=== PATIENT | female | born 1980 | race Hispanic/Latino ===

== ENCOUNTER 2024-04-14 21:57 | Emergency (ER) | payer MEDICAID ==
[~2024-04-14] VITALS: Ht 167.6 cm; Wt 73.9 kg
[2024-04-14] MEDS ORDERED: IBUP-1556 PO (22:16)
[2024-04-14] MEDS ORDERED: CLIN-141 PO (22:16)
--- NOTE | 2024-04-14 22:17 | ERN ---
ED Note History of Present Illness Stated Complaint: C/O ABSCESS TO RIGHT CHEEK Chief Complaint: Abscess Time Seen by MD: 22:10 Dictation: PATIENT IS A 43-YEAR-OLD FEMALE HERE WITH COMPLAINTS OF MILD RIGHT CHEEK SWELLING TENDERNESS WITH A PIMPLE ONSET 4-5 DAYS PRIOR TO ARRIVAL. NO FEVER NO CHILLS NO NAUSEA VOMITING SHE IS NOT A DIABETIC PATIENT SHE IS HERE VISITING FROM [place] AND PLANS TO GO BACK HOME IN TWO WEEKS. Allergies: Coded Allergies: No Known Allergies (Unverified Allergy, Unknown, 04/14/24) Past Medical History Past Medical History: Anxiety, Bipolar, Depression, Diabetes-Type II, Hypertension, Hypothyroid Surgical History: Cholecystectomy History: Not Applicable RN Note Reviewed/Agreed w/PFSH: Yes Review of System Dictation CONSTITUTIONAL: NEGATIVE EXCEPT FOR HPI HEAD/FACE: NEGATIVE EXCEPT FOR HPI RIGHT CHEEK EENT: NEGATIVE EXCEPT FOR HPI RESPIRATORY: NEGATIVE EXCEPT FOR HPI GASTROINTESTINAL/ABDOMINAL: NEGATIVE EXCEPT FOR HPI GENITOURINARY: NEGATIVE EXCEPT FOR HPI MUSCULOSKELETAL: NEGATIVE EXCEPT FOR HPI INTEGUMENTARY: NEGATIVE EXCEPT FOR HPI NEUROLOGICAL/PSYCH: NEGATIVE EXCEPT FOR HPI HEMATOLOGIC/LYMPHATIC: NEGATIVE EXCEPT FOR HPI ALL SYSTEMS NEGATIVE, EXCEPT NOTED ABOVE. 13 POINT REVIEW OF SYSTEMS ASSESSED AND ALL NEGATIVE EXCEPT FOR ABOVE. Initial Vital Sign VS Vital Signs Date Time Temp Pulse Resp B/P (MAP) Pulse Ox O2 Delivery O2 Flow Rate FiO2 04/14/24 22:00 98.1 79 20 131/81 98 Room Air Physical Exam Dictation VITAL SIGNS REVIEWED GENERAL APPEARANCE: ALERT, ORIENTED X 3, NO ACUTE DISTRESS, WELL DEVELOPED, NOURISHED. HEAD AND FACE: NON-TRAUMATIC. RIGHT CHEEK ERYTHEMA TENDERNESS WITH PIMPLE NOTED EYES: PERRL, PINK CONJUNCTIVAS, EYELID NO TRAUMA, ANTERIOR CHAMBER WITH ARCUS SENILIS. EARS: PINNAS INTACT AND NO SIGNS OF TRAUMA OR ERYTHEMA EAR CANALS CLEAR AND NO DISCHARGE TM NO ERYTHEMA NOSE: NO DISCHARGE, NO BLEEDING. OROPHARYNX: MOUTH NORMAL, TONGUE PINK, PHARYNX CLEAR,NO ERYTHEMA, TONSILS NO EXUDATES, NO ABSCESSES NOTED, MUCOUS MEMBRANE MOIST NECK: SUPPLE, NON-TENDER, NO THYROMEGALY, NO MASSES, NO JVD, NO BRUITS BREAST:DEFERRED CHEST:NO TENDERNESS, NO CREPITUS, NO PARADOXICAL MOVEMENT, NO RETRACTIONS LUNGS:CLEAR, WELL-VENTILATED, SYMMETRIC, NO RALES, NO WHEEZING, NO RHONCHI, NO STRIDOR, GOOD BREATH SOUNDS BILATERALLY HEART: REGULAR RATE, REGULAR RHYTHM, NO MURMUR, NO GALLOPS VASCULAR: NO PERIPHERAL EDEMA, ABDOMEN: SOFT, POSITIVE BOWEL SOUNDS, NONDISTENDED, NO GUARDING, NONTENDER, NO REBOUND, NO MASSES NO HEPATOMEGALY, NO SPLENOMEGALY, NO COELHO'S SIGN, NO HERNIAS. RECTAL: DEFERRED GENITAL: DEFERRED NEUROLOGICAL: NORMAL SPEECH, MOTOR FUNCTION INTACT, SENSORY FUNCTION INTACT MUSCULOSKELETAL: NECK NONTENDER, FULL RANGE OF MOTION, BACK NONTENDER, FULL RANGE OF MOTION, EXTREMITIES: NONTENDER, FULL RANGE OF MOTION SKIN: COLOR PINK, DRY, NO TURGOR, NO RASH, NO LACERATIONS, NO ABRASIONS, NO CONTUSIONS. LYMPHATIC: DEFERRED Results (Laboratory/Radiology) Labs Reviewed?: Yes ED Course ED Course Orders Procedure Category Date Status Time Clindamycin 150mg Cap PHA 04/14/24 Transmitted (Cleocin 150mg Cap 22:30 Ibuprofen 800 Mg Tab PHA 04/14/24 Transmitted (Motrin) 22:30 Vital Signs Date Time Temp Pulse Resp B/P (MAP) Pulse Ox O2 Delivery O2 Flow Rate FiO2 04/14/24 22:00 98.1 79 20 131/81 98 Room Air 2215 PATIENT WILL BE TREATED EMPIRICALLY FOR SUPERFICIAL FACIAL CELLULITIS WITH CLINDAMYCIN AUGMENTIN GIVEN A LIST OF LOCAL DOCTORS TO FOLLOW UP WITH THE NEXT FEW DAYS FOR ANY COMPLICATIONS. Medical Decision Making MDM MEDICAL DISCHARGE MAKING BASED ON EMPIRIC TREATMENT FOR A SUPERFICIAL CELLULITIS OF THE FACE. PATIENT LOADED WITH 600 MG CLINDAMYCIN GIVEN A LIST OF LOCAL DOCTORS TO FOLLOW UP IN THE NEXT 2-3 DAYS OR SEE HER DOCTOR IN [place] WHEN SHE RETURNS HOME. DX & DISP Disposition: Discharge Departure Impression: Primary Impression: Cellulitis of face Condition: Stable Scripts Ibuprofen (Ibu) 800 Mg Tablet 800 MG PO Q6HPRN PRN for PAIN, #30 TAB Prov: FOREST BALDWIN NP 04/14/24 Clindamycin HCl (Clindamycin HCl) 300 Mg Capsule 1 CAP PO QID for 10 Days, #40 CAP 0 Refills Prov: FOREST BALDWIN HEAD FILTER TANK TENDER HELPER 04/14/24 Additional Instructions: FOLLOW-UP WITH PRIMARY CARE PROVIDER IN 1 TO 2 DAYS. TAKE MEDICATIONS DIRECTED HERE IN THE EMERGENCY ROOM. OKAY TO CONTINUE HOME MEDICATIONS UNLESS OTHERWISE DISCUSSED DURING YOUR VISIT IN THE EMERGENCY ROOM TODAY. RETURN TO YOUR NEAREST EMERGENCY ROOM IF SYMPTOMS WORSEN OR IF THERE IS NO IMPROVEMENT. CALL 911 IF YOU NEED IMMEDIATE ASSISTANCE. TAKE TYLENOL OR MOTRIN [id number] NEEDED AND IF NO CONTRAINDICATIONS ARE PRESENT. INCREASE ORAL HYDRATION. A WOUND CULTURE OR URINE CULTURE WAS ORDERED HERE IN THE EMERGENCY ROOM DEPARTMENT PLEASE FOLLOW-UP WITH PRIMARY CARE PROVIDER AND ADVISE THEM TO GET REPEAT PORTS FROM OUR FACILITY. IF YOU HAD ANY RUPINDER WRAP/SPLINTS THAT WERE APPLIED HERE, PLEASE DO NOT REMOVE THEM UNTIL YOU SEE YOUR PRIMARY CARE OR SPECIALTY. TAKE ANTIBIOTICS DIRECTED UNTIL GONE. WARM COMPRESSES TO FACE THREE TO 4 TIMES A DAY. DO NOT SQUEEZE THE PIMPLE ON YOUR FACE. SEE YOUR PRIMARY CARE DOCTOR FOR FOLLOW UP IN [place] OR ONE OF THE LOCAL DOCTORS IN THE NEXT 3-4 DAYS IF ANY COMPLICATIONS Referrals: MANDY MEDINA MD (PCP) Time of Disposition: 22:15 I have reviewed the case, and I agree with, Diagnosis and Plan FOREST BALDWIN NP Apr 14, 2024 22:17
[2024-04-14] MEDS: CLINDAMYCIN 150 MG CAP PO ONE (22:36)
[2024-04-14] MEDS: ibuPROFEN 800 MG TAB PO ONE (22:36)
[2024-04-14 22:47] VITALS: BP 139/82; PULSE 84; RESP 18; TEMP 98.3; O2SAT 99
== END 2024-04-14 22:56 | disposition home or self-care (01) ==
LOC: EDH 21:57
DX: L03.211 Cellulitis of face (principal); E03.9 Hypothyroidism, unspecified; E11.9 Type 2 diabetes mellitus without complications; F31.9 Bipolar disorder, unspecified; I10 Essential (primary) hypertension; Z90.49 Acquired absence of other specified parts of digestive tract
CPT/HCPCS: 99283